=== PATIENT | female | born 1955 | race Caucasian/White ===

== ENCOUNTER 2020-07-07 13:00 | Emergency (ER) | payer BC, OTHER ==
[~2020-07-07] VITALS: Ht 160 cm; Wt 92.5 kg
[~2020-07-07 13:00] MED LIST: LEVO0.083 PO
--- NOTE | 2020-07-07 13:02 | NUR ---
Patient BIBA BLS, transferred to bed 5. RN evaluating patient at bedside.
[2020-07-07 13:04] VITALS: BP 196/74
--- NOTE | 2020-07-07 13:24 | NUR ---
Dr. Loomis is evaluating the patient at bedside.
[2020-07-07] MEDS ORDERED: KETOROLAC 30 MG/ML VIAL IM ONE (13:25)
--- NOTE | 2020-07-07 13:26 | NUR ---
PATIENT DAISHA FROM STORE S/P [facility] ON TO [facility]NEES . PT STATES SHE TRIPPED OVER METAL PART ON FLOOR AND FELL ONTO BILAT KNEES, CAUSING PAIN AND INABILITY TO AMBULATE. NO DEFORMITIES NOTED. CMS+ . DENIES N/V/D; SKIN IS PINK/WARM/DRY; AAOX4 WITH EVEN AND STEADY GAIT; LUNGS CLEAR BL; HR EVEN AND REGULAR; PT DENIES ANY FEVER, CP, SOB, OR COUGH AT THIS TIME; PATIENT STATES PAIN OF 8/10 AT THIS TIME; VSS; PATIENT POSITIONED FOR COMFORT; HOB ELEVATED; BEDRAILS UP X2; BED DOWN. ER MD MADE AWARE OF PT STATUS.
--- NOTE | 2020-07-07 15:20 | NUR ---
Dr. Arce is evaluating the patient at bedside.
[2020-07-07 15:24] VITALS: BP 184/71
--- NOTE | 2020-07-07 15:24 | NUR ---
Patient discharged with v/s stable. Written and verbal after care instructions given and explained. Patient alert, oriented and verbalized understanding of instructions. Ambulatory with steady gait. All questions addressed prior to discharge. ID band removed. Patient advised to follow up with PMD. Rx of Naprosyn 500mg and [place] 5mg-325mg given. Patient educated on indication of medication including possible reaction and side effects. Opportunity to ask questions provided and answered.
== END 2020-07-07 15:24 | disposition home or self-care (01) ==
LOC: MED 13:00
DX: S80.01XA Contusion of right knee, initial encounter (principal); S80.212A Abrasion, left knee, initial encounter; S80.211A Abrasion, right knee, initial encounter; E07.9 Disorder of thyroid, unspecified; I10 Essential (primary) hypertension; Z79.899 Other long term (current) drug therapy; Z98.890 Other specified postprocedural states; W19.XXXA Unspecified fall, initial encounter; Y93.89 Activity, other specified; Y92.89 Other specified places as the place of occurrence of the external cause; Y99.8 Other external cause status
CPT/HCPCS: 73562; 73700; 96372; 99284; J1885; Q0092